=== PATIENT | female | born 1980 ===

== ENCOUNTER 2019-09-03 13:18 | Day surgery (SDC) | payer SELFPAY ==
[~2019-09-03 13:18] MED LIST: Buffered Lidocaine 1% SYRIN* 1 ML/SYRINGE INTRADERM ONE; Dexamethasone TAB* 4 MG PO ONE; DiMENhydriNATE IV* 50 MG/ML VIAL IV PUSH PRN; Famotidine IV* 10 MG/ML 2 ML (20 mg) IV ONE; Lactated Ringers 1000 ML Bag* 1,000 ML IV SCH; Naloxone* 0.4 MG/ML 1 ML VIAL IV PRN; Ondansetron ODT TAB* 4 MG PO ONE; PROCHLORPERAZINE INJ 5 MG/ML 2 ML VIAL IV PRN; oxyCODONE TAB* 5 MG TAB PO PRN
[2019-09-03] MEDS ORDERED: ceFAZolin 2 GM in NS PREMIX(*) 2 GM/100 ML BAG IVPB ONE (13:42)
[2019-09-03] MEDS ORDERED: Famotidine IV* 10 MG/ML 2 ML (20 mg) ONE (13:47)
[2019-09-03] MEDS ORDERED: Dexamethasone TAB* 4 MG ONE (13:47)
[2019-09-03] MEDS ORDERED: Buffered Lidocaine 1% SYRIN* 1 ML/SYRINGE INTRADERM ONE (13:47)
[2019-09-03] MEDS ORDERED: Ondansetron ODT TAB* 4 MG ONE (13:47)
[2019-09-03] MEDS ORDERED: ROPIVACAINE 5 MG/ML 30 ML BTL (0.5%) ONE (14:49)
[2019-09-03] MEDS ORDERED: Atracurium* 10 MG/ML 10 ML VIAL ONE (14:51)
[2019-09-03] MEDS ORDERED: fentaNYL* 50 MCG/ML 5 ML VIAL (250 MCG VIAL) ONE (14:51)
[2019-09-03] MEDS ORDERED: Midazolam* 1 MG/ML 5 ML VIAL (5 MG) ONE (14:51)
[2019-09-03] MEDS ORDERED: Ketorolac INJ* 30 MG/ML 1 ML VIAL ONE (14:52)
[2019-09-03] MEDS ORDERED: Ondansetron INJ* 2 MG/ML VIAL ONE (14:52)
[2019-09-03] MEDS ORDERED: Propofol* 10 MG/ML 20 ML BTL ONE (14:52)
[2019-09-03] MEDS ORDERED: Bupivacaine 0.5%* 50 ML MDV VIAL ONE (14:59)
[2019-09-03] MEDS ORDERED: Labetalol IV* 5 MG/ML 20 ML VIAL ONE (17:05)
[2019-09-03] MEDS ORDERED: fentaNYL* 50 MCG/ML 2 ML VIAL (100 MCG VIAL) ONE (17:18)
[2019-09-03] MEDS: fentaNYL* 50 MCG/ML 2 ML VIAL (100 MCG VIAL) IV PRN ×4 (17:20→17:32)
[2019-09-03] MEDS ORDERED: HYDROmorphone INJ1* 1 MG/ML SYRINGE ONE (17:33)
[2019-09-03] MEDS: HYDROmorphone INJ1* 1 MG/ML SYRINGE IV PRN ×5 (17:34→18:00)
[2019-09-03] MEDS ORDERED: oxyCODONE TAB* 5 MG TAB ONE (17:38)
[2019-09-03] MEDS ORDERED: Lidocaine 2% PF * 5 ML VIAL ONE (18:13)
[2019-09-03] MEDS ORDERED: Bupivacaine 0.5% SDV PF* 30ML VIAL ONE (18:13)
--- NOTE | 2019-09-03 18:16 | OP ---
Operative Report - Blank - Operative Report Date of Operation: 09/03/19 Note: PATIENT: Betty Gibbs DATE OF : 1980 DATE OF SURGERY: 09/03/2019 SURGEON: Franky Ye MD RF MANAGER: GINNY Quintanilla , whos assistance was necessary for positioning, retraction, help with instrumentation, and closure. ANESTHESIOLOGIST: Dr. Chavez and Dr. Kaiser PREOPERATIVE DIAGNOSIS: Right trimalleolar ankle fracture POSTOPERATIVE DIAGNOSIS: Right trimalleolar ankle fracture OPERATION: Right trimalleolar ankle fracture open reduction and internal fixation ANESTHESIA: General + block IMPLANTS: Arthrex ankle fracture set plate and screws TOURNIQUET TIME: Less than 2 hours with a well-padded thigh tourniquet at 250mmHg SPECIMENS: none ESTIMATED BLOOD LOSS: minimal COMPLICATIONS: none STATUS: Stable from the operating room to the recovery room and then home. INDICATIONS FOR PROCEDURE: October sustaining a right ankle fracture dislocation which was reduced in the emergency room. This involved a comminuted distal fibula fracture, as well , as a posterior malleolar fracture and fracture that extends into the medial malleolus. Both operative and non operative treatment alternatives were reviewed. Further, the nature and risks of surgery were reviewed in careful detail, in the office as well as the pre-operative holding area. Our discussions regarding the risks of surgery included, but were not limited to, infection, wound problems, nerve injury, neuroma, RSD, persistent symptoms, blood clot, nonunion, malunion, post-traumatic arthritis, hardware failure, failure of the surgery, and even the remote chance of catastrophic complication. DESCRIPTION OF PROCEDURE: The patient was seen in the preoperative holding unit and informed written consent was obtained. The appropriate extremity was marked. The patient was then brought to the operating room and carefully positioned on the operating room table. Anesthesia was induced. All bony prominences were padded with great care. A well-padded thigh tourniquet was placed. A chlorhexidine based pre- scrub was performed followed by a chloraprep prep and drape in standard sterile fashion. A surgical safety pause was then conducted in which we confirmed the appropriate patient, extremity, planned procedure, availability of equipment, indication and administration of prophylactic antibiotics, and DVT prophylaxis in the form of a compression boot on the non-surgical extremity. I began with Esmarch exsanguination of the limb and inflated the tourniquet. I then utilized a laterally based incision overlying the posterior aspect of the distal fibula. Great care was taken to protect the superficial peroneal nerve, which was not visualized within the field of view. I dissected down through the soft tissue layers to expose the distal fibula and SPR. I then exposed the distal fibula fracture. Fracture hematoma was removed. I gained a reduction utilizing a pointed reduction clamp. I placed an Arthrex anatomic distal fibula plate laterally and then confirmed the reduction and the position of the plate fluoroscopically. I placed screws to hold the plate to the bone. The provisional fixation was removed and then I again confirmed fluoroscopically the appropriate position of the plate and screw lengths. I then found the plane between the peroneals and flexor hallucis longus and dissected into this plane. I exposed the posterior malleolus. I reduced the fracture and this was held provisionally with a ball tipped pusher. I placed 2 posterior to anterior 4.0 mm cannulated screws to hold this reduced. I then performed a fluoroscopic stress examination and there was some instability appreciated at the distal tib-fib syndesmosis. Therefore elected to place a syndesmotic tight rope under fluoroscopic guidance. This held the syndesmosis well reduced. Final fluoroscopic images were obtained. At this point, we irrigated copiously and then closed in layers meticulously utilizing 2-0 Vicryl, 3-0 Monocryl for the deep and subdermal layers and melo for the skin. A sterile dressing was then applied followed by a splint with the ankle in a neutral position. The patient was then awakened from anesthesia and transferred to the recovery room in stable condition. There were no complications. All needle and sponge counts were correct at the end of the case. ATTESTATION: I attest I was present and scrubbed and performed the critical portions of the procedure myself. POSTOPERATIVE PLAN: The postop plan is for [id number] for an anticipated duration of 6 weeks. Follow-up will be in 2 weeks. At that time we will likely transition into a [id number] aircast boot.
[2019-09-03 20:56] VITALS: BP 122/86
== END 2019-09-03 21:01 | disposition home or self-care (01) ==
LOC: OR 13:18
PROVIDERS: ATTEND Orthopaedic Surgery
DX: S82.851A Displaced trimalleolar fracture of right lower leg, initial encounter for closed fracture (principal); M25.571 Pain in right ankle and joints of right foot; F17.210 Nicotine dependence, cigarettes, uncomplicated; W00.0XXA Fall on same level due to ice and snow, initial encounter; Y93.89 Activity, other specified; Y92.89 Other specified places as the place of occurrence of the external cause
CPT/HCPCS: 76000; A9270-GY; C1713; C1776; J0690; J1170; J1885; J2250; J2405; J2704; J2795; J3010; J3490; J8540